=== PATIENT | male | born 1970 | race Caucasian/White ===

== ENCOUNTER 2025-02-26 09:49 | Emergency (ER) | payer SELFPAY ==
[2025-02-26 09:58] VITALS: BP 167/88
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
[2025-02-26 12:52] VITALS: BP 159/85
== END 2025-02-26 12:54 | disposition home or self-care (01) ==
LOC: EMR 09:49
PROVIDERS: EMERGENCY PHYSICIAN Emergency Medicine; FAMILY PHYSICIAN Internal Medicine
DX: S29.012A Strain of muscle and tendon of back wall of thorax, initial encounter (principal); V43.54XA Car driver injured in collision with van in traffic accident, initial encounter; Y92.410 Unspecified street and highway as the place of occurrence of the external cause; E11.22 Type 2 diabetes mellitus with diabetic chronic kidney disease; I12.9 Hypertensive chronic kidney disease with stage 1 through stage 4 chronic kidney disease, or unspecified chronic kidney disease; N18.9 Chronic kidney disease, unspecified; E11.36 Type 2 diabetes mellitus with diabetic cataract; Z79.4 Long term (current) use of insulin
CPT/HCPCS: 99282